=== PATIENT | female | born 1985 | race Two or more races ===

== ENCOUNTER 2024-05-09 08:22 | Emergency (ER) | payer MEDICAID, OTHER ==
[~2024-05-09] VITALS: Ht 160 cm; Wt 124.0 kg
[2024-05-09 08:22] VITALS: BP 124/67; PULSE 103; RESP 16; O2SAT 96
[2024-05-09] MEDS: HYDROcodone-ACET 10/325MG TAB PO ONE (09:35)
[2024-05-09] MEDS ORDERED: CYCL-839 PO (10:42)
[2024-05-09] MEDS ORDERED: IBUP-1455 PO (10:42)
[2024-05-09] MEDS ORDERED: LIDO5DIS21 TOP (10:42)
== END 2024-05-09 10:50 | disposition home or self-care (01) ==
LOC: ER 08:22 → EDBD 08:22 → ER 10:49
DX: S13.4XXA Sprain of ligaments of cervical spine, initial encounter (principal); R07.89 Other chest pain; M25.511 Pain in right shoulder; M25.562 Pain in left knee; Z79.899 Other long term (current) drug therapy; V89.2XXA Person injured in unspecified motor-vehicle accident, traffic, initial encounter; Y93.89 Activity, other specified; Y92.89 Other specified places as the place of occurrence of the external cause; Y99.8 Other external cause status
CPT/HCPCS: 71046; 72040; 73020